=== PATIENT | male | born 1960 | race Caucasian/White ===

== ENCOUNTER 2019-12-12 18:34 | Inpatient (IN) | payer BC ==
[~2019-12-12] VITALS: Ht 175.3 cm; Wt 114.8 kg
[2019-12-31] MEDS ORDERED: DULERA 100 MCG/13 GM INH (16:09)
[2019-12-31] MEDS ORDERED: PROTONIX40 M4 PO (16:09)
[2019-12-31] MEDS ORDERED: SINGULAIR 10 MG10 M1 PO (16:10)
[2019-12-31] MEDS ORDERED: ATACAND32 MG PO (16:10)
[2019-12-31] MEDS ORDERED: FELDENE20 MG PO (16:10)
[2019-12-31] MEDS ORDERED: VITAMIN C500 M2 PO (16:11)
[2019-12-31] MEDS ORDERED: ASPIR 8181 M1 PO (16:11)
[2019-12-31] MEDS ORDERED: MULTI VITAMIN1 EACH PO (16:12)
[2019-12-31] MEDS ORDERED: ZINC50 M2 PO (16:12)
[2019-12-31] MEDS ORDERED: ZOMIG2.5 MG PO (16:13)
[2019-12-31] MEDS ORDERED: PROAIR HFA8.5 GM INH (16:13)
[2019-12-31] MEDS ORDERED: MORPHINE SULFAT15 M3 PO (16:14)
[2019-12-31] MEDS ORDERED: IPRATROPIU0.2 MG/1 M INH (16:15)
[2019-12-31] MEDS ORDERED: XOPENEX CO1.25 MG/0. INH (16:42)
[2020-01-04 09:55] LABS: HEMATOCRIT 45.1 % (42.0-52.0); HEMOGLOBIN 15.2 gm/dL (14.0-18.0); MCH 29.7 pg (26.0-34.0); MCHC 33.7 g/dL (28.0-37.0); MCV 88.2 fL (80.0-100.0); RBC 5.11 mil/uL (4.50-6.00); RDW 14.1 % (10.5-14.5); WBC 5.1 thou/uL (4.0-11.0)
[2020-01-04 10:08] LABS: PROTIME 10.4 Seconds (9.3-11.4)
[2020-01-04 10:10] LABS: URINE BILIRUBIN NEGATIVE (Negative); URINE BLOOD NEGATIVE (Negative); URINE CLARITY CLEAR; URINE COLOR YELLOW; URINE GLUCOSE-RANDOM* NEGATIVE (Negative); URINE KETONES NEGATIVE (Negative); URINE LEUKOCYTES-REFLEX NEGATIVE (Negative); URINE NITRITE-REFLEX NEGATIVE (Negative); URINE PROTEIN (DIPSTICK) NEGATIVE (Negative); URINE UROBILINOGEN 0.2 E.U./dl (0.2-1.0)
[2020-01-04 10:14] LABS: ALBUMIN 4.2 g/dL (3.4-5.0); CALCIUM 8.7 mg/dL (8.5-10.1); CREATININE 1.1 mg/dL (0.7-1.3); POTASSIUM 4.9 mmol/L (3.5-5.1)
[2020-01-09 13:46] VITALS: BP 131/83
[2020-01-09 18:00] VITALS: BP 129/83
[2020-01-09 18:15] VITALS: BP 128/86
[2020-01-09 18:30] VITALS: BP 132/89
[2020-01-09 18:45] VITALS: BP 133/93
--- NOTE | 2020-01-09 19:30 | NUR ---
PATIENT S/P BILATERAL TOTAL KNEE REPLACEMENT WITH BILATERAL POLAR PACKS, VICTOR HUGO DRESSINGS, AND SCDs. LEGS ELEVATED FOR COMFORT, TURNING SELF TO SIDE, PUMPING ANKLES, AND USING IS. MS CONTIN BID ALREADY INITIATED, PLAN PERCOCET LATER WITH PATIENT CONCERNED ABOUT HOW MUCH PAIN HE WILL HAVE WHEN THE BLOCK WEARS OFF.
[2020-01-09 19:40] VITALS: BP 131/90
--- NOTE | 2020-01-09 22:30 | NUR ---
ABLE TO VOID ONLY 50 CC PER URINAL LYING SIDEWAYS. IN OBVIOUS DISTRESS, STRAIGHT CATH FOR 800 CC
--- NOTE | 2020-01-10 | NUR ---
PATIENT TAKES ATACAND 32 MG EVERY EVENING IN ORDER TO AVOID MIGRAINES. DR QIU DINING CHAIR SEAT CUSHION TRIMMER HAS OK'D THIS BUT OUR PHARMACY DOES NOT HAVE IT ON THEIR FORMULARY. PER PATIENT REQUEST, DR QIU WILL CALL IN A PRESCRIPTION FOR A FEW PILLS TO [facility] AT [phone]
[2020-01-10 01:00] VITALS: BP 107/58
[2020-01-10 04:50] LABS: HEMOGLOBIN 13.3 gm/dL (14.0-18.0); MCHC 34.2 g/dL (28.0-37.0); MCV 87.6 fL (80.0-100.0); RBC 4.45 mil/uL (4.50-6.00); RDW 13.4 % (10.5-14.5); WBC 12.9 thou/uL (4.0-11.0)
[2020-01-10 05:00] VITALS: BP 99/61
--- NOTE | 2020-01-10 05:36 | NUR ---
MINIMAL PAIN, PATIENT REPOSTIONING SELF FREQUENTLY HE ELEVATES HIS LEGS WHILE KEEPING KNEES STRAIGHT. ENCOURAGING PERCOCET IF PAIN INCREASES HAS NOT NEEDED TO BE STRAIGHT CATHED AGAIN WITH A 400 CC VOID NOW AND A PRACTICALLY FULL URINAL (SPILLED) A LITTLE BEFORE 0300
[2020-01-10 07:30] VITALS: BP 122/70
--- NOTE | 2020-01-10 10:06 | NUR ---
chart review. alanna visited with martha via phone call. he is a & o x 4, pleasant and able to make his needs know. he reported " live in house with , safe and support. independent when feeling ok. has cane and walker, both function properly and are not broken. drives vehicle. 2 steps with hr into home, inside everything on main level, do not have to go to the finished basement 12 stairs with hr x 1. have walk in shower and then have shower chair. out pt rehab at [facility], their therapy is great. [facility] for outpt rehab at [place] on january 13. 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 thank you. would like to be dc by 10am since have 7-[address] and have to stop every hour. hopeful this will work tomorrow"/martha. information passed on to bedside nurse rt dc time for pt long drive home.
--- NOTE | 2020-01-10 10:06 | O ---
[facility] [place] [address] OPERATIVE REPORT Name: SHANA BUTLER Room #: 440-P ADM IN M.R.#: [id number] Admission: 01/09/20 Attend Phys: Jimmy Wright MD Discharge: Date of : 56 Report #: [id number] THIS REPORT FOR: cc: TAVO RAGSDALE Physician not on staff Jimmy Wright MD ~ CC: TAVO RAGSDALE Physician staff Jimmy Wright DATE OF SERVICE: 01/09/2020 PREOPERATIVE DIAGNOSIS: Bilateral knee osteoarthritis. POSTOPERATIVE DIAGNOSIS: Bilateral knee osteoarthritis. PROCEDURE: Bilateral total knee arthroplasty using Navio robotic assistance. SURGEON: Jimmy Wright MD. LOCK AND DAM OPERATOR: Ginna Olivas PA-C. INDICATIONS FOR LOCK AND DAM OPERATOR: Throughout the case, extensive retraction and manipulation of the knees were required. This was afforded to me by my talent acquisition assistant. ANESTHESIA: LMA with adductor canal blocks. IMPLANTS: Bilateral Noland and Nephew size 6 Journey II BCS Oxinium femur, size 5 tibia, size 9 constrained polyethylene and size 35 patella. TOURNIQUET TIME: 56 minutes on the right and 58 minutes on the left. ESTIMATED BLOOD LOSS: 50 mL. COMPLICATIONS: None. SPECIMENS: None. CONDITION UPON LEAVING THE OPERATING ROOM: Stable. INDICATIONS FOR PROCEDURE: The patient is a 59-year-old gentleman with bilateral knee osteoarthritis. He had failed conservative measures for this and after discussion with him, he elected for bilateral total knee arthroplasty. DESCRIPTION OF PROCEDURE: This applies to bilateral knees. Bilateral knees [facility] [address] [place] [address] OPERATIVE REPORT Name: SHANA BUTLER Room #: 440-P ADM IN M.R.#: [id number] Admission: 01/09/20 Attend Phys: Jimmy Wright MD Discharge: Date of : 56 Report #: [id number] were marked in the preoperative holding area. IV Ancef was given for preoperative antibiotics. He was brought to the operating room and placed in supine position on operating room table. LMA anesthesia was induced without complication. Tourniquets were placed on bilateral thighs. Bilateral lower extremities were prepped and draped in normal sterile fashion. Timeout was performed properly identifying the patient and procedure as well as the instrumentation and implants. All in the operating room were in agreement. The lower extremity was exsanguinated, tourniquet was inflated. Tourniquet time was 56 minutes for the right and 58 minutes for the left. Standard midline approach to knee was made with 10 blade through the skin. Dissection was taken down sharply to the fascia and deep flaps were developed medially and laterally. Fresh 10 blade was used to make a medial parapatellar arthrotomy and the knee was inspected. There was severe tricompartmental osteoarthritis. ACL and PCL were removed sharply. Reference pins were placed in the femur and the tibia. The knee was then digitally mapped using the LoungeUp robotic system. Intraoperative plan was made and we sized the size 6 femur, a size 5 tibia, size 10 polyethylene. After acceptance of the intraoperative plan, the distal femoral cut was made with a Navio bur. The femoral cutting block was pinned in place and chamfer cuts were made. Attention was then turned to the tibia. Remainder of the menisci removed with Bovie cautery. Tibial resection guide was pinned in place and tibial resection was made. After this, flexion and extension gaps were checked and found to be tight medially in flexion and extension. A limited medial release was then performed using the pie crust technique and this balanced the knee well. Tibia was sized, found to be a size 5. A size 5 tibial trial was placed, pinned and punched. A size 6 femoral trial was placed and the box cut was made. This was then trialed with a size 9 polyethylene. Knee was taken through range of motion, found to have good balance medially throughout range of motion with a 4 mm of laxity laterally. It was felt that we could make up for this with a constrained implant. After this, trial components were removed. Bony ends were thoroughly irrigated with normal saline. A 9 mm was resected from the posterior surface of the patella and a size 35 patellar trial button was placed. Final size 5 tibia, size 6 Journey II BCS Oxinium femur and a size 35 patella were cemented in place using standard cementation techniques. While the cement cured, a periarticular injection consisting of morphine, ropivacaine, epinephrine, Toradol was placed around the knee joint capsule. After the cement cured, tourniquet was deflated. Hemostasis was obtained with Bovie cautery. Final size 9 constrained polyethylene was placed. A gram of vancomycin was placed deep in the joint. The fascia was closed with 0 Vicryl, skin was closed with 2-0 Vicryl, 3-0 Monocryl, Dermabond and a VICTOR HUGO dressing was applied. The patient tolerated this procedure well and went to the recovery room under the care of anesthesia postoperatively. <ELECTRONICALLY SIGNED> By: Jimmy Wright MD 01/10/20 [id number] Jimmy Wright MD /nt
[2020-01-10 16:25] VITALS: BP 124/68
--- NOTE | 2020-01-10 18:26 | NUR ---
VSS-LOW GRADE TEMP OF 99.3 AT END OF SHIFT. C/O PAIN BEHIND RIGHT KNEE, SMALL BUMP PALPABLE. NO REDNESS WITH RIGHT CALF. LEFT CALF AREA IS REDDENED, BUT NOT SORE, AND NO HARD SPOTS PALPABLE. STAT ULTRASOUND ORDERED PER DR COTA. OOB WITH PHYSICAL THERAPY, TOLERATED WELL. SPENT MOST OF AFTERNOON IN CHAIR. GOOD APPETITE, TOLERATED MEALS WITH NO REPORTED N/V. PAIN WELL CONTROLLED WITH PO PAIN MEDICATIONS. CALLS APPROPRIATELY FOR ANY NEEDED ASSISTANCE.
[2020-01-10 20:50] VITALS: BP 127/69
[2020-01-11 04:09] LABS: HEMATOCRIT 36.1 % (42.0-52.0); HEMOGLOBIN 12.3 gm/dL (14.0-18.0); MCH 30.1 pg (26.0-34.0); MCHC 34.2 g/dL (28.0-37.0); RBC 4.1 mil/uL (4.50-6.00); WBC 10.1 thou/uL (4.0-11.0)
[2020-01-11 04:22] VITALS: BP 107/57
--- NOTE | 2020-01-11 05:20 | NUR ---
ASSUMED PT CARE AT 1900. PT WOKE UP IN MIDDLE OF THE NIGHT WITH C/O PAIN. IV PAIN MEDS GIVEN FOR BREAKTRHOUGH, PROVIDED RELIEF. USING URINAL AT BEDSIDE. ANTICIPATING THERAPY THIS AM, THEN DISCHARGING EARLY. NO OTHER SIGNIFCANT CHANGES.
[2020-01-11 08:00] VITALS: BP 135/74
--- NOTE | 2020-01-11 13:23 | NUR ---
ON-GOING ASSESSMENT: CM REVIEWED CHART. PT HAD INCREASED PAIN TODAY AFTER HIS COMPRESSION STOCKING WAS REMOVED. PLAN IS FOR PATIENT TO DISCHARGE HOME TUESDAY IF HE IS ABLE TO DO STAIRS WITH PHYSCIAL THERAPY OR POSSIBLY TUESDAY. PT ALREADY HAS OUTPATIENT THERAPY ARRANGED AND A WALKER AT HOME. PLANS FOR PATIENT TO DISCHARGE WITH OUTPATIENT THERAPIES AT DISCHARGE.
[2020-01-11 15:00] VITALS: BP 133/75
--- NOTE | 2020-01-11 17:55 | NUR ---
PT CARE ASSUMED AT 0700.A&0x4. PT POST OP DAY 2 WITH A PENDING DISCHARGE PER PT EVALUATION. PT NOT ABLE TO DISCHARGE TO TO OT BEING ABLE TO WALK THE STAIRS OR SHORT DISTANCES WITHOUT PAIN. PT PAIN MANAGED WITH PAIN MEDICATION AND NEEDING MORE TODAY THEN YESTERDAY. HE IS NOT ABLE TO DISCHARGE TODAY. DR. RODRIGUEZ OFFICE IS AWARE. HAIM HOSES/POLARPACK/SCD'S IN PLACE. PT UP IN THE RECLINER ALL DAY. IV PATENT, WITH NO REDNESS OR EDEMA. CELEBREX ADDED TO THE EMAR. FALL PROTOCOL IN PLACE. CALL LIGHT IN REACH. PT DECLINED FAMILY UPDATE. WILL CONTINUE TO MONITOR.
[2020-01-11 20:20] VITALS: BP 122/66
--- NOTE | 2020-01-11 21:52 | NUR ---
1900 ASSUMED CARE OF PT AFTER BEDSIDE REPORT, PT IN CHAIR WITH NO COMPLAINTS OR QUESTIONS AT THIS TIME, 1999 BASELINE ASSESSMENT COMPLETE, FALL PRECAUTIONS IN PLACE, URINAL EMPTIED OF 300CC CLEAR YELLOW URINE, PEDAL PULSES AND RADIAL PULSES 2+BILATERALLY, TOES PWD BILATERAL GREAT TOE CAP REFILL<3SEC MOVEMENT AND STRENGTH EQUAL IN BLE, PAIN 4/10 TO B KNEES, WILL CONTINUE TO MONITOR WITH HOURLY ROUNDING, POLAR PACKS FILLED WITH ICE, AND PT DENIES ANY QUESTIONS OR CONCERNS AT THIS TIME 2129 PAIN MED GIVEN PER OCT PER PT REQUEST AND PAIN TO B KNEES 5/10 WORSE IN R KNEE WILL RETURN AT 2199 TO HELP PT BACK TO BED FROM CHAIR, PT STATES HE IS MOVING LEGS AND IS USING IS HOURLY
[2020-01-12 05:33] VITALS: BP 123/62
[2020-01-12 05:39] LABS: HEMATOCRIT 34.7 % (42.0-52.0); HEMOGLOBIN 11.8 gm/dL (14.0-18.0); MCH 29.9 pg (26.0-34.0); MCV 87.8 fL (80.0-100.0); RBC 3.96 mil/uL (4.50-6.00); RDW 13.7 % (10.5-14.5); WBC 8.8 thou/uL (4.0-11.0)
[2020-01-12 08:56] VITALS: BP 115/74
[2020-01-12 10:11] VITALS: BP 115/74
--- NOTE | 2020-01-12 18:21 | NUR ---
Assumed care of pt at 0700. Pt a&ox4. Dressing on liam knee c/d/i. Polar pack, SCDs, and HAIM hose in place. 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 Physical therapy states pt is safe to go home. Pt discharged to home. States he already has pain med scripts from doctor.
== END 2020-01-12 10:50 | disposition home or self-care (01) | DRG 462 ==
LOC: PRE 18:34 → TBA 01-09 10:34 → PRE 01-09 10:35 → 4S 01-09 18:27
PROVIDERS: ADMIT Orthopaedic Surgery
PROC: 0SRC069 Replacement of Right Knee Joint with Oxidized Zirconium on Polyethylene Synthetic Substitute, Cemented, Open Approach (ICD-10-PCS; principal; 2020-01-09)
PROC: 0SRD069 Replacement of Left Knee Joint with Oxidized Zirconium on Polyethylene Synthetic Substitute, Cemented, Open Approach (ICD-10-PCS; principal; 2020-01-09)
PROC: 8E0Y0CZ Robotic Assisted Procedure of Lower Extremity, Open Approach (ICD-10-PCS; principal; 2020-01-09)
DX: M17.0 Bilateral primary osteoarthritis of knee (principal); Z88.5 Allergy status to narcotic agent; Z88.8 Allergy status to other drugs, medicaments and biological substances; Z79.899 Other long term (current) drug therapy
CPT/HCPCS: 10102; 50010; 50101; 50415; 50915; 50954; 51130; 51225; 51320; 52001; 52282; 53000; 53078; 54118; 55372; 56527; 56528; 57095; 57103; 57110; 57127; 57180; 62110; 62900; 64039; 70005